=== PATIENT | male | born 1980 | race Caucasian/White ===

== ENCOUNTER 2020-04-17 12:17 | Inpatient (IN) | payer BC ==
[~2020-04-17] VITALS: Ht 177.8 cm; Wt 93.3 kg
[2020-04-17 12:55] LABS: Calcium, Ionized (POC) 1.04 mmol/L (1.10-1.46); Chloride (POC) 98 mmol/L (98-108); Creatinine (POC) 1.3 mg/dL (0.8-1.3); Glucose (ISTAT POC) 145 mg/dL (70-99); Hemoglobin (POC) 13.3 g/dL (13.5-17.5); Potassium (POC) 3.4 mmol/L (3.5-5.5); Sodium (POC) 134 mmol/L (135-148); Total CO2 (POC) 25 mmol/L (21-32)
[2020-04-17] MEDS ORDERED: HYDR1TAB94 (12:56)
[2020-04-17 13:06] LABS: BASOPHILS ABSOLUTE AUTO 0.03 K/mm3 (0.00-0.23); BASOPHILS PERCENT AUTO 0 % (0-2); EOSINOPHILS ABSOLUTE AUTO 0.07 K/mm3 (0.00-0.68); EOSINOPHILS PERCENT AUTO 1 % (0-6); Hematocrit 37.3 % (37.0-53.0); Hemoglobin 11.7 g/dL (13.5-17.5); IMMATURE GRAN ABSOLUTE AUTO 0.07 K/mm3 (0.00-0.10); IMMATURE GRAN PERCENT AUTO 1 % (0-1); LYMPHOCYTES ABSOLUTE AUTO 2.93 K/mm3 (0.84-5.20); LYMPHOCYTES PERCENT AUTO 26 % (21-46); MONOCYTES ABSOLUTE AUTO 0.99 K/mm3 (0.16-1.47); MONOCYTES PERCENT AUTO 9 % (4-13); Mean Corpuscular HGB 24.1 pg (26.0-34.0); Mean Corpuscular HGB Conc 31.4 g/dL (31.5-36.5); Mean Corpuscular Volume 77 fL (80-100); Mean Platelet Volume 11.2 fL (9.1-12.4); NEUTROPHILS ABSOLUTE AUTO 7.12 K/mm3 (1.96-9.15); NEUTROPHILS PERCENT AUTO 64 % (41-73); NRBC ABSOLUTE 0.14 K/mm3 (0.00-0.02); NRBC Auto 1.2 /100 WBC (0.0-0.2); Platelet Count 312 K/mm3 (150-400); RDW Standard Deviation 48.8 fL (35.1-46.3); Red Blood Cell Count 4.85 M/mm3 (4.30-5.90); White Blood Cell Count 11.21 K/mm3 (4.00-11.30)
[2020-04-17 13:26] LABS: Alanine Aminotransfer (ALT/SGP 29 U/L (12-78); Albumin, Blood 3.3 g/dL (3.4-5.0); Alk Phos 57 U/L (50-136); Anion Gap 10 mmol/L (6-16); Aspartate Aminotrans (AST/SGOT 24 U/L (12-37); Bilirubin, Total 0.5 mg/dL (0.1-1.0); Blood Urea Nitrogen 37 mg/dL (8-24); Bun/Creatinine Ratio 28.7 (12.0-20.0); CO2, Blood 25 mmol/L (21-32); Calcium, Blood 8.7 mg/dL (8.5-10.1); Chloride, Blood 102 mmol/L (98-108); Creatinine, Blood 1.29 mg/dL (0.60-1.20); Globulin, Blood 3.4 g/dL (2.2-4.0); Glomerular Filtration Rate >60 (60-); Glucose, Blood 134 mg/dL (70-99); Potassium, Blood 3.5 mmol/L (3.5-5.5); Sodium, Blood 137 mmol/L (136-145); Total Protein, Blood 6.7 g/dL (6.4-8.2)
[2020-04-17 18:56] LABS: Hemoglobin 11.3 g/dL (13.5-17.5)
--- NOTE | 2020-04-17 19:37 | NUR ---
SHIFT SUMMARY SARMAD ARRIVED AROUND 230 FROM ER. COMPLAINED OF HEADACHE AND GOT TYLENOL. INDEP IN ROOM. KEPT NPO THIS SHIFT PER ORDERS. GOT CALL FROM [facility], HAD 5 MINUTE RUN OF BOOGIE, FRANTZ INFORMED. PROTONIX DRIP RUNNING. CALL LIGHT IN REACH, REPORT GIVEN TO NIGHT NURSE
[2020-04-17 23:55] LABS: Influenza A, PCR NEGATIVE (NEGATIVE); Influenza B, PCR NEGATIVE (NEGATIVE); Resp Syncytial Virus, PCR NEGATIVE (NEGATIVE); SARS-Cov-2 (COVID-19) PCR, MMC NEGATIVE (NEGATIVE)
[2020-04-18 04:45] LABS: Hematocrit 32.7 % (37.0-53.0); Hemoglobin 10.2 g/dL (13.5-17.5); Mean Corpuscular HGB 24.5 pg (26.0-34.0); Mean Corpuscular HGB Conc 31.2 g/dL (31.5-36.5); Mean Corpuscular Volume 79 fL (80-100); Mean Platelet Volume 11.3 fL (9.1-12.4); Platelet Count 246 K/mm3 (150-400); RDW Coefficient Variation 18.3 % (11.7-14.2); RDW Standard Deviation 51.5 fL (35.1-46.3); Red Blood Cell Count 4.16 M/mm3 (4.30-5.90); White Blood Cell Count 6.25 K/mm3 (4.00-11.30)
[2020-04-18 05:02] LABS: Anion Gap 5 mmol/L (6-16); Blood Urea Nitrogen 23 mg/dL (8-24); Bun/Creatinine Ratio 21.7 (12.0-20.0); CO2, Blood 30 mmol/L (21-32); Calcium, Blood 8.4 mg/dL (8.5-10.1); Chloride, Blood 103 mmol/L (98-108); Creatinine, Blood 1.06 mg/dL (0.60-1.20); Glomerular Filtration Rate >60 (60-); Glucose, Blood 100 mg/dL (70-99); Potassium, Blood 3.8 mmol/L (3.5-5.5); Sodium, Blood 138 mmol/L (136-145)
--- NOTE | 2020-04-18 07:13 | NUR ---
04/18/20 0600 PT SLEPT WELL AFTER SLEEPER MED GIVEN. NO STOOLS THIS SHIFT. HEART MONITOR STABLE AT SR IN THE 80'S. PT HAD CLEAR LIQUIDS UNTIL MIDNIGHT AND THEN JUST SIPS OF WATER AND ICE CHIPS UNTIL 5 AM. NPO AFTER 5 AM. VITALS STABLE. COVID TEST DONE. IV PROTONIX IN EFFECT ALL SHIFT.
--- NOTE | 2020-04-18 11:51 | NUR ---
PT TRANSFERED TO [facility] VIA [facility] FROM FLOOR. History, Chart, Medications and Allergies reviewed before start of procedure. Lungs clear T/O to Auscultation. Pre-Op teaching done. Pt verbalizes understanding.
[2020-04-18] MEDS ORDERED: OMEP20ER PO (17:10)
--- NOTE | 2020-04-18 17:16 | NUR ---
DISCHARGE SUMMARY PT GOT BACK FROM EGD THIS AFTERNOON, PER DR OG, PT OK TO EAT. GAG REFLEX PRESENT, FOOD GIVEN WITH NO ISSUES, NO NAUSEA. UPON DISCHAGE, PIVS REMOVED, PAPERWORK GONE OVER, PCP F/U MADE FOR APRIL 19, PT AWARE. FAXED NEW MED TO [facility], PT AWARE.
== END 2020-04-18 17:26 | disposition home or self-care (01) | DRG 381 ==
LOC: ER 12:17 → MEDS 14:39 → ERHOLD 14:39 → MEDS 16:40
PROVIDERS: Emergency Medicine; Internal Medicine Gastroenterology; ADMIT Internal Medicine
PROC: 0DB68ZX Excision of Stomach, Via Natural or Artificial Opening Endoscopic, Diagnostic (ICD-10-PCS; principal; 2020-04-18 12:30)
DX: K22.11 Ulcer of esophagus with bleeding (principal); D62 Acute posthemorrhagic anemia; K44.9 Diaphragmatic hernia without obstruction or gangrene; K25.9 Gastric ulcer, unspecified as acute or chronic, without hemorrhage or perforation; K29.81 Duodenitis with bleeding; F10.20 Alcohol dependence, uncomplicated; T39.015A Adverse effect of aspirin, initial encounter; Y92.9 Unspecified place or not applicable
CPT/HCPCS: 0241U; 36415; 80047; 80048; 80053; 83690; 85014; 85018; 85025; 85027; 86850; 86900; 86901; 88305; 88342; 93005; 93010; 96365; 96366; 96368; 99285-25; A9270; C9113; J0610; J2250; J2354; J2704; J3411; J3475; J7042; J7050; J7120

== ENCOUNTER 2020-09-15 06:44 | Day surgery (SDC) | payer BC ==
[~2020-09-15] VITALS: Ht 172.7 cm; Wt 103.4 kg
[~2020-09-15 06:44] MED LIST: HYDR1TAB94; OMEP20ER PO
[2020-09-15] MEDS ORDERED: LISI5 (07:01)
== END 2020-09-15 08:47 | disposition home or self-care (01) ==
LOC: ORSCSDS 06:44
PROVIDERS: Internal Medicine Gastroenterology
PROC: 0D758ZZ Dilation of Esophagus, Via Natural or Artificial Opening Endoscopic (ICD-10-PCS; principal; 2020-09-15 08:00)
PROC: 0D757ZZ Dilation of Esophagus, Via Natural or Artificial Opening (ICD-10-PCS; principal; 2020-09-15 08:00)
DX: K20.90 Esophagitis, unspecified without bleeding (principal); E66.9 Obesity, unspecified; Z68.36 Body mass index [BMI] 36.0-36.9, adult; K22.2 Esophageal obstruction; K29.80 Duodenitis without bleeding; Z87.11 Personal history of peptic ulcer disease; F41.8 Other specified anxiety disorders; E78.5 Hyperlipidemia, unspecified; Z79.899 Other long term (current) drug therapy
CPT/HCPCS: J2250; J2704; J7120

== ENCOUNTER 2020-11-30 10:26 | Day surgery (SDC) | payer BC ==
[~2020-11-30] VITALS: Ht 172.7 cm; Wt 107.4 kg
[~2020-11-30 10:26] MED LIST changes: +LISI5
== END 2020-11-30 11:52 | disposition home or self-care (01) ==
LOC: ORSCSDS 10:26
PROVIDERS: Internal Medicine Gastroenterology
PROC: 0D758ZZ Dilation of Esophagus, Via Natural or Artificial Opening Endoscopic (ICD-10-PCS; principal; 2020-11-30 11:45)
DX: Q39.3 Congenital stenosis and stricture of esophagus (principal); K44.9 Diaphragmatic hernia without obstruction or gangrene; E78.5 Hyperlipidemia, unspecified; I10 Essential (primary) hypertension; F41.8 Other specified anxiety disorders; Z79.899 Other long term (current) drug therapy
CPT/HCPCS: J2250; J2704; J7120